=== PATIENT | female | born 1955 | race Caucasian/White ===

== ENCOUNTER → 2021-09-18 | Outpatient (CLI) | payer MEDICARE ==
--- NOTE | 2021-09-18 08:00 | CT ---
EXAMINATION TYPE: CT brain wo con CT DLP: 1072.3 mGycm, Automated exposure control for dose reduction was used. DATE OF EXAM: 09/18/2021 7:40 AM COMPARISON: None. CLINICAL INDICATION:Female, 66 years old with history of R51.9 headache, TECHNIQUE: Brain: Axial CT images of the brain were obtained with coronal and sagittal reformats created and rev iewed. Contrast used: None. Oral contrast used: None. FINDINGS: Brain: Extra-axial spaces: No abnormal extra-axial fluid collections. Ventricular system: Within normal limits Cerebral parenchyma: No acute intraparenchymal hemorrhage or mass effect. The chaudhary-white junction is well differentiated. Empty sella morphology. Cerebellum: Unremarkable. No definitive tonsillar ectopia. Mass effect: No evidence of midline shift. Intracranial vasculature: unremarkable Soft tissues: Normal. Calvarium/osseous structures: No depressed skull fracture. Paranasal sinuses and mastoid air cells: Clear Visualized orbits: Orbital contents are intact. No definitive evidence of papilledema. IMPRESSION: * No acute intracranial process. * Empty sella morphology without definitive tonsillar ectopia or papilledema.
== END | disposition home or self-care (01) ==
LOC: RADCTMAIN 07:08
PROVIDERS: ATTEND Family Medicine
DX: R51.9 Headache, unspecified (principal)
CPT/HCPCS: 70450